=== PATIENT | male | born 1960 | race Caucasian/White ===

== ENCOUNTER 2021-09-09 11:44 | Emergency (ER) | payer OTHER, SELFPAY ==
[2021-09-09 11:54] VITALS: BP 109/82; PULSE 95; RESP 18; TEMP 38.1; O2SAT 99
--- NOTE | 2021-09-09 12:09 | ED.EXTPRO ---
HPI - Extremity Problem General Chief complaint: Extremity Problem,Nontraumatic Stated complaint: rightleg inner thigh pain Time Seen by Provider: 09/09/21 12:10 Source: patient and RN notes reviewed Mode of arrival: ambulatory Limitations: no limitations History of Present Illness HPI Narrative: 61-year-old male presents to the [facility] with pain to the right upper inner thigh. Denies testicular pain. Patient states he might be an ingrown hair. Treatment prior to arrival. States blood sugars have been a little elevated. Has full range of motion. Related Data Home Medications Medication Instructions Recorded Confirmed exenatide microspheres [Bydureon 2 mg SUBCUT DAILY 09/09/21 09/09/21 BCise] glimepiride 2 mg PO DAILY 09/09/21 09/09/21 lisinopril-hydrochlorothiazide 1 tablet PO DAILY 09/09/21 09/09/21 metformin 1,000 mg PO DAILY 09/09/21 09/09/21 simvastatin 20 mg PO DAILY 09/09/21 09/09/21 Allergies Allergy/AdvReac Type Severity Reaction Status Date / Time No Known Allergies Allergy Verified 09/09/21 12:15 Review of Systems Review of Systems: All systems reviewed & are unremarkable except as noted in HPI and below Constitutional: Constitutional: Reports no additional constitutional complaints, Denies chills and Denies fever(s) Eyes: Eyes: Reports no additional eye complaints ENT: Reports system reviewed and no additional complaints, except as documented Cardiovascular: Cardiovascular: Reports no additional cardiovascular complaints Respiratory: Respiratory: Reports no additional respiratory complaints Gastrointestinal: Gastrointestinal: Reports no additional gastrointestinal complaints Genitourinary: Genitourinary: Denies scrotal swelling, Denies testicular mass and Denies testicular pain Musculoskeletal: Musculoskeletal: Reports no additional musculoskeletal complaints Integumentary/Breasts: Skin/Breast: Reports as per HPI, Reports swelling and Reports erythema (Right inner thigh) Neurologic: Reports system reviewed and no additional complaints, except as documented Psychiatric: Psychiatric: Reports no additional psychiatric complaints Allergic/Immunologic: Allergic/Immunologic: Reports no additional allergic/immunologic complaints [facility] Past Medical History Medical History (Updated 09/09/21 @ 19:32 by Kristin Taylor APRN) High cholesterol History of diabetes mellitus Hypertension Social History Social History (Updated 09/09/21 @ 19:32 by Kristni A. Topper, [employer]) Gender identity (if verbalized by the patient): Male Comments At the time of my signature, I reviewed and agree with the nursing past medical, surgical, social, and family history. There is no relevant family history pertinent to the patient complaint. Exam Const: General: cooperative, healthy appearing, no acute distress, well developed and alert Nutritional Appearance: well nourished and obese Orientation/consciousness: patient oriented x3 Limitations: no limitations HENMT: Head: normal to inspection Ears: external ears normal Eyes: Pupils: Equal, round and reactive pupils present Neck: Neck: normal visual inspection, no lymphadenopathy and no meningeal signs Chest: Chest palpation & inspection: normal inspection of the chest Resp: Effort & Inspection: normal respiratory effort and no use of accessory muscles Auscultation: clear to auscultation bilaterally, no crackles, no rales, no rhonchi and no wheezes Cardio: Rate: regular rate Rhythm: regular rhythm GI: GI Palp: Yes Soft to palpation and No Tenderness to palpation present (GI) : General: Yes no CVA tenderness Testes: no epidiymal tenderness and no testicular swelling Back/Spine/Pelvis: Back: no CVA tenderness Skin: General skin exam: normal color and erythema Rashes: no rashes Wounds: wounds noted Other: Fluctuant area 1-1/2 x 1-1/2 center, erythema extending 6 x 2-1/2. Erythema right upper medial thigh, does not extend into the scrotal or butt
[2021-09-09 12:33] LABS: Glucose Point of Care 190 mg/dl (65-105)
--- NOTE | 2021-09-09 12:36 | PC.NURSE ---
1235- accucheck is 190mg/Dl
--- NOTE | 2021-09-09 13:09 | PC.NURSE ---
1230-- ART MODEL did I&D to wound, and culture taken of wound drainage, and pt tolerated extremely well. pt has gauze covering at present.
== END 2021-09-09 13:19 | disposition home or self-care (01) ==
PROVIDERS: Emergency Provider Nurse Practitioner
DX: L02.415 Cutaneous abscess of right lower limb (principal)
CPT/HCPCS: 10060; 82948; 87070; 87075; 87076; 87185; 87205; 99203; G0463